=== PATIENT | male | born 1965 | race Caucasian/White ===

== ENCOUNTER 2018-10-05 17:32 | Emergency (ER) | payer OTHER ==
[~2018-10-05] VITALS: Ht 180.3 cm; Wt 77.1 kg
[2018-10-05] MEDS ORDERED: PANADOL EXTRA500 MG (18:08)
== END 2018-10-05 22:00 | disposition home or self-care (01) ==
LOC: ER 17:32
DX: N20.1 Calculus of ureter (principal)

== ENCOUNTER 2020-04-05 18:43 | Emergency (ER) | payer OTHER ==
[~2020-04-05] VITALS: Ht 180.3 cm; Wt 77.1 kg
[~2020-04-05 18:43] MED LIST: PANADOL EXTRA500 MG
[2020-04-05] MEDS ORDERED: TAGAMET HB200 MG (19:35)
[2020-04-05] MEDS ORDERED: [UNRECOGNIZED DRUG - OTHER] (19:35)
[2020-04-05] MEDS ORDERED: PROTONIX40 MG (19:36)
[2020-04-05] MEDS ORDERED: KETO10TA2 PO (21:19)
[2020-04-05] MEDS ORDERED: TAMS0.4C PO (21:19)
[2020-04-05] MEDS ORDERED: CIPRO500 MG PO (21:19)
== END 2020-04-05 21:29 | disposition home or self-care (01) ==
LOC: ER 18:43
DX: N20.0 Calculus of kidney (principal); R10.32 Left lower quadrant pain